=== PATIENT | female | born 1945 | race Caucasian/White ===

== ENCOUNTER 2016-12-28 17:08 | Emergency (ER) | payer MEDICARE, OTHER ==
--- NOTE | ~2016-12-28 | ER ---
PATIENT'S NAME: MOHIT JOHNSON [facility] AGE: 71 Y [address] ROOM: [place] [address] LOCATION: [facility] ADMIT DATE: 12/28/2016 ER/Outpatient Report DISCHARGE DATE: 12/28/2016 FAMILY PHYSICIAN: Batool Laura MD ATTENDING PHYSICIAN: Jeri Valdovinos CHIEF COMPLAINT: Headache, high blood pressure, and chills. HISTORY OF PRESENT ILLNESS: The patient states that her blood pressure has been slowly climbing over the last 10 days or so. Today, she saw high readings than she has seen in quite a while, and she developed a headache. Has a squeezing sensation across the top of the head. She did wake up with it this morning and has felt like it has gotten worse. Dshq-enw-oyopozg remedies have not helped. She is very anxious about this. She does have a history of some anxiety issues, but has never been treated. The patient does report that she has stage 3 chronic kidney disease for unknown reasons. PAST MEDICAL HISTORY: Documented on the record and reviewed by me. SOCIAL HISTORY: Documented on the record and reviewed by me. MEDICATIONS: Documented on the record and reviewed by me. ALLERGIES: DOCUMENTED ON THE RECORD AND REVIEWED BY ME. REVIEW OF SYSTEMS: All systems were reviewed and negative except as noted in the HPI. PHYSICAL EXAMINATION: VITAL SIGNS: Blood pressure 192/108, pulse 63, respiratory rate is 20, temperature 97.5, and SpO2 is 97% on room air. Pain is 6/10. GENERAL: Age-appropriate female, in no obvious distress, in obvious discomfort, resting comfortably on the exam table. NEUROLOGIC: Awake and alert. GCS is 15. No meningismus on exam. She has normal coordination and gait. No obvious abnormalities. HEENT: Normocephalic, atraumatic. Eyes are PERRL. No photophobia. NECK: Supple. Trachea is midline. Oropharynx is clear, moist and intact. CHEST: Heart has regular rate and rhythm with no murmurs. Lungs are clear to auscultation bilateral with no rhonchi, wheezes, or rales. PATIENT'S NAME: MOHIT JOHNSON [facility] AGE: 71 Y [address] ROOM: [place] [address] LOCATION: [facility] ADMIT DATE: 12/28/2016 ER/Outpatient Report DISCHARGE DATE: 12/28/2016 FAMILY PHYSICIAN: Batool Lauar MD ATTENDING PHYSICIAN: Jeri Valdovinos ABDOMEN: Soft, nontender, nondistended. No rebound or guarding. BACK: Nontender to palpation throughout. No CVA tenderness. SKIN: Warm, dry, and intact. EXTREMITIES: Warm and well perfused. No abnormalities. LABORATORY DATA AND X-RAYS: EKG was obtained; sinus rhythm, rate of 65 with normal intervals and axis. No signs of acute ischemia. No comparison is immediately available. Labs: CMS is notable for a creatinine of 1.3, a GFR of 40 consistent with her baseline, CK-MB and troponin are below detectable threshold, free T4 and TSH of 1.2 and 0.412. CBC is completely unremarkable. Lactate is 1.1. Head CT is reported as normal per Radiology. IMPRESSION: 1. Headache. 2. Essential hypertension with suboptimal control. 3. Chronic kidney disease. EMERGENCY DEPARTMENT COURSE: The patient was seen and evaluated as above. She was given Compazine, Benadryl, and fluids. She had near-complete resolution of her headache and her blood pressure improved markedly to discharge of 164/92. This is more in range with where she has been lately. I believe that she is safe for discharge. She does not have a presentation consistent with hypertensive urgency or emergency. I recommend a close followup with primary care physician for further evaluation of blood pressure. She may require some renal artery ultrasounds as she does have some elevated blood pressure in the setting of some chronic kidney disease. I do not feel that she needs to be hospitalized for that at this time. All questions were answered, and the patient was discharged in good condition as there was no evidence of end-organ dysfunction. MD JUAN LUIS GARCIA/sahara /[id number] d: 12/30/16 0801 t: 01/08/17 0944, OUTPATIENT REPORT
[2016-12-28 18:24] LABS: BASOPHIL % 0.8 %; EOSINOPHIL # 0.1 K/uL (0.0-0.5); EOSINOPHIL % 1.8 %; HEMOGLOBIN 13.7 g/dL (10.0-15.0); IMMATURE GRANULOCYTE % 0.2 %; LYMPHOCYTE # 1.5 K/uL (0.8-4.0); LYMPHOCYTE % 29.4 %; MCH 30.7 pg (27.0-34.0); MCHC 32.6 gm/dL (32.0-36.5); MCV 94.2 fl (83.0-98.0); MONOCYTE # 0.4 K/uL (0.0-1.0); MONOCYTE % 8.6 %; MPV 9.9 fl (9.4-12.4); NEUTROPHIL % 59.2 %; NRBC % 0 /100WBC (0-0.00); PLATELET COUNT 179 K/uL (150-450); RBC 4.46 M/uL (3.50-5.50); RDW-CV 12.1 % (11.9-14.6); WBC 5.1 K/uL (4.0-11.0)
[2016-12-28 18:33] LABS: PROTIME 10.7 SECONDS (9.6-11.1); PTT 24 SECONDS (25-32)
[2016-12-28 18:44] LABS: ALBUMIN 3.9 gm/dL (3.5-5.0); ALK PHOS 99 IU/L (33-138); ALT 20 IU/L (12-78); ANION GAP 13.9 (10.0-19.0); AST 20 IU/L (10-40); BLOOD UREA NITROGEN 14 mg/dL (6-24); CALCIUM 8.9 mg/dL (8.5-10.5); CHLORIDE 107 mMol/L (96-110); CO2 25 mMol/L (22-32); CREATININE 1.3 mg/dL (0.5-1.1); ESTIMATED GFR (MDRD EQUATION) 40; POTASSIUM 3.9 mMol/L (3.7-5.1); SODIUM 142 mMol/L (135-145); TOTAL BILIRUBIN 0.5 mg/dL (0.0-1.5); TOTAL PROTEIN 7.3 g/dL (6.0-8.4)
== END 2016-12-28 19:42 | disposition disaster alternative care site (69) ==
LOC: GMED 17:08
PROVIDERS: Emergency Medicine
DX: R51 Headache (principal); I12.9 Hypertensive chronic kidney disease with stage 1 through stage 4 chronic kidney disease, or unspecified chronic kidney disease; N18.9 Chronic kidney disease, unspecified
CPT/HCPCS: J0780; J1200; J1885; J7030

== ENCOUNTER → 2016-12-31 | Outpatient (CLI) | payer MEDICARE, OTHER | END | disposition disaster alternative care site (69) | LOC: GRAD 08:30 | DX: I12.9 Hypertensive chronic kidney disease with stage 1 through stage 4 chronic kidney disease, or unspecified chronic kidney disease (principal); N18.9 Chronic kidney disease, unspecified; N28.1 Cyst of kidney, acquired ==